=== PATIENT | female | born 2005 | race Caucasian/White ===

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

== ENCOUNTER 2025-02-09 22:05 | Emergency (ER) | payer OTHER, SELFPAY ==
[2025-02-09 22:05] VITALS: BP 128/74; PULSE 94; RESP 18; TEMP 36.4; O2SAT 98
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
--- NOTE | 2025-02-09 22:32 | PC.NURSE ---
DR WINN AT THE BEDSIDE. JACQUELIN CALDERON, SITTING AT THE BEDSIDE. PATIENT IS CALM AND COOPERATIVE. PATIENT HAS CHANGED INTO PAPER SCRUBS, URINE SAMPLE OBTAINED AND TAKEN DOWN TO LAB
--- NOTE | 2025-02-09 22:36 | ECG_ITS ---
Test Date: 2025-02-09 22:48:08 Measurements Intervals [place] Rate: 94 P: 51 SC: 122 QRS: 65 QRSD: 88 T: 40 QT: 342 QTc: 429 Interpretive Statements SINUS RHYTHM POSSIBLE RIGHT VENTRICULAR CONDUCTION DELAY [RSR (QR) IN V1/V2] WITHIN NORMAL LIMITS No previous ECG available for comparison Electronically Signed On 02-11-2025 12:57:54 CDT by Frank Victor M.D.
--- NOTE | 2025-02-09 22:39 | ED.PSYCH ---
HPI - Psych General Chief Complaint: Psychiatric Symptoms Stated Complaint: suicidal thoughts Time Seen by Provider: 02/09/25 22:32 Source: patient and family Mode of arrival: ambulatory Limitations: no limitations History of Present Illness HPI Narrative: 20 years old white female came to the ED with her father from home complaining of suicidal thoughts over the last 3 months. Patient was hospitalized in the past at [facility] and would like to go back to that hospital again. Patient does not have a specific plan. She denies any fever, chills, nausea, or vomiting Related Data Home Medications ?Medication ?Instructions ?Recorded ?Confirmed ?Last Taken ?Type buspirone 30 mg tablet 20 mg PO BID 07/28/22 06/19/24 Unknown History lamotrigine 50 mg disintegrating 50 mg PO BID 07/28/22 06/19/24 Unknown History tablet sertraline 100 mg tablet 100 mg PO DAILY 07/28/22 06/19/24 Unknown History Allergies Allergy/AdvReac Type Severity Reaction Status Date / Time No Known Allergies Allergy Verified 02/09/25 22:54 Review of Systems Review of Systems: All systems reviewed & are unremarkable except as noted in HPI and below PMFSH Surgical History Surgical History H/O knee surgery Social History Social History Substance use type: marijuana Exam Narrative: General appearance: Well-developed, well-nourished Skin: Normal color Head: Normocephalic, nontraumatic Eyes: Clear conjunctiva ENT: Oropharynx normal, ears normal, nose normal Neck: Supple, nontender Chest and respiratory: Airway patent, no respiratory distress, no accessory muscle use Heart: Regular rate/rhythm Abdomen: Soft, nontender, no organomegaly, quiet bowel sounds Vascular: Normal peripheral pulses, normal capillary refill. Musculoskeletal: Normal range of motion, nontender back Neurologic: Alert and oriented ?3, CASER is normal as tested, no gross motor deficit Course Vital Signs Vital signs: Vital Signs Temperature 36.4 C 02/09/25 22:05 Pulse Rate 94 02/09/25 22:05 Respiratory Rate 18 02/09/25 22:05 Blood Pressure 128/74 02/09/25 22:05 Pulse Oximetry 98 02/09/25 22:05 Oxygen Delivery Room Air 02/09/25 22:05 Temperature 36.1 C L 02/10/25 05:31 Pulse Rate 99 02/10/25 05:31 Respiratory Rate 18 02/10/25 05:31 Blood Pressure 123/79 02/10/25 05:31 Pulse Oximetry 97 02/10/25 05:31 Oxygen Delivery Room Air 02/10/25 05:31 MDM - Psych MDM Narrative Medical decision making narrative: patient came with suicidal thought for the last 3 months. History of major depression with anxiety Vital signs are stable Differential diagnosis include major depression with suicidal thoughts Blood workup today includes CBC, CMP, TSH showed WBC of 14.3, Urine test is negative Urinalysis showed no evidence of infection Patient tested negative for COVID flu and RSV Diagnosis major depression with suicidal ideation Transferred to [facility] discussed with Dr. Gillette Patient care turned over to Dr. Cartagena at shift change, awaiting Transferred to [facility]. Patient been resting quietly in the emergency room without any issues or problems. Medical Records Attestation: I reviewed the patient's medical records. Lab Data Attestation: I reviewed the patient's lab results. 02/09/25 23:02 02/09/25 23:02 Labs: Lab Results 02/09/25 02/09/25 02/09/25 Range/Units 22:43 22:47 23:02 WBC 14.3 H (4.8-10.8) K/mm3 RBC 4.89 (4.20-5.40) M/mm3 Hgb 13.8 (12.0-15.0) g/dL Hct 41.7 (35.0-49.0) % MCV 85.3 (78.0-102.0) fL MCH 28.2 (27.0-31.0) pg MCHC 33.1 (32-36) g/dL RDW 12.1 (11.6-14.4) % Plt Count 267 (150-420) K/mm3 MPV 10.6 (9.2-11.8) fl Immature Gran % (Auto) 0.4 H (0.0-0.0) % Neut % (Auto) 79.1 H (50.0-70.0) % Lymph % (Auto) 14.0 L (18.0-42.0) % [place]ck[place] % (Auto) 4.7 (2.0-11.0) % Eos % (Auto) 1.3 (1.0-6.0) % Baso % (Auto) 0.5 (0.0-1.0) % Lymph # (Auto) 2.00 (1.10-4.50) K/mm3 [place]ck[place] # (Auto) 0.67 (0.10-0.90) K/mm3 Eos # (Auto) 0.19 (0.02-0.50) K/mm3 Baso # (Auto) 0.07 (0.00-0.10) K/mm3 Abs Immat Gran (auto) 0.06 H (0.00-0.00) K/mm3 Absolute Neuts (auto) 11.34 H (1.70-7.20) K/mm3 Absolute Nucleated RBC 0.00 (0.00-0.00) K/mm3 Nucleated RBC % 0.0 (0-0.0) % Sodium 136 L (137-145) mmol/L Potassium 3.8 (3.4-5.0) mmol/L Chloride 107 (98-107) mmol/L Carbon Dioxide 21 L (22-30) mmol/L Anion Gap 8 (4-12) mmol/L BUN 10 (7-17) mg/dL Creatinine 0.79 (0.7-1.0) mg/dL Estim Creat Clear Calc 78 ml/min Estimated GFR > 60 (59 - ) Glucose 99 (65-110) mg/dL Calculated Osmolality 281 L (285-295) mOsm/kg Calcium 9.2 (8.4-10.2) mg/dL Total Bilirubin 0.5 (0.2-1.3) mg/dL AST 23 (14-36) U/L ALT 17 (6-35) U/L Alkaline Phosphatase 70 (38-126) U/L Total Protein 7.3 (6.3-8.2) g/dL Albumin 4.2 (3.5-5.1) g/dL TSH (Reflex) 2.880 (0.465-4.68) uIU/mL Urine Color Light yellow (Yellow) Urine Appearance Clear (Clear) Urine pH 6.0 (5.0-8.0) Ur Specific Nev[place] 1.025 H (1.010-1.020) Urine Protein Negative (Negative) Urine Glucose (UA) Negative (Negative) Urine Ketones Negative (Negative) Ur Blood (Man) 3+ H (Negative) Urine Nitrate Negative (Negative) Urine Bilirubin Negative (Negative) Urine Urobilinogen 0.2 (0.2-1.0) mg/dL Leukocyte Esterase Rfl Negative (Negative) ALDEN/UL Urine RBC 11-20 H (0-2) /hpf Urine WBC 0-3 (0-3) /hpf Ur Squamous Epith Cells Few (Few) /hpf Urine Bacteria Trace (None) /hpf Urine Test Negative Urine Opiates Screen Negative (Negative) Urine Methadone Screen Negative (Negative) Ur Barbiturates Screen Negative (Negative) Ur Phencyclidine Scrn Negative (Negative) Ur Amphetamine Screen Negative (Negative) U Benzodiazepines Scrn Negative (Negative) Urine Cocaine Screen Negative (Negative) U Cannabinoids Screen Positive A (Negative) Ethyl Alcohol < 10 (<10) mg/dL Influenza A (RT-PCR) Negative (Negative) Influenza B (RT-PCR) Negative (Negative) RSV (RT-PCR) Negative (Negative) SARS-CoV-2 RNA (RT-PCR) Negative (Negative) ECG Data EKG #1: Attestation: I personally reviewed and interpreted this ECG as follows: ECG completion date: 02/10/25 Interpretation: normal sinus rhythm at 94 beats per minute, right bundle-branch block, no previous EKG available Critical Care Time Critical Care Time Critical Care Time: No Discharge Plan Discharge Clinical Impression: Depression with suicidal ideation Patient Disposition: Acute Care Hospital Condition: Stable Additional Instructions: transferred to [facility] Patient Language: Hebrew Prescriptions: No Action ondansetron 4 mg tablet,disintegrating 4 mg PO Q6H PRN (Reason: nausea and vomiting) Qty: 14 0RF nitrofurantoin monohyd/m-cryst [Macrobid] 100 mg capsule 100 mg PO Q12H 7 Days Qty: 14 0RF Rx Instructions: must administer with a meal/food sertraline 100 mg tablet 100 mg PO DAILY buspirone 30 mg tablet 20 mg PO BID lamotrigine 50 mg tablet,disintegrating 50 mg PO BID Follow-up/Referrals: UNKNOWN,DOCTOR [Non-Staff] -
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
[2025-02-09 22:48] LABS: Add Urine Microscopic? YES; Appearance Urine Clear (Clear); Glucose Urine UA Negative (Negative); Leukocyte Esterase Ur Negative LEU/UL (Negative); Nitrate Urine Negative (Negative); Specific Grav Ur 1.025 (1.010-1.020)
[2025-02-09 22:56] LABS: Pregnancy On Board Control Positive
[2025-02-09 23:05] LABS: Hematocrit 41.7 % (35.0-49.0); Hemoglobin 13.8 g/dL (12.0-15.0); Immature Granulocyte Percent A 0.4 % (0.0-0.0); Lymphocytes Absolute Auto 2.00 K/mm3 (1.10-4.50); Mean Corpuscular HGB Conc 33.1 g/dL (32-36); Mean Corpuscular Hemoglobin 28.2 pg (27.0-31.0); Mean Corpuscular Volume 85.3 fL (78.0-102.0); Nucleated Red Blood Cells Absolute Auto 0.00 K/mm3 (0.00-0.00); Nucleated Red Blood Cells Perc 0.0 % (0-0.0); Platelet Count Result 267 K/mm3 (150-420); Red Blood Count 4.89 M/mm3 (4.20-5.40); White Blood Count 14.3 K/mm3 (4.8-10.8)
[2025-02-09 23:07] LABS: Cannabinoid Screen Urine Positive (Negative)
--- NOTE | 2025-02-09 23:09 | PC.NURSE ---
LAB HAS BEEN TO THE BEDSIDE AND DRAWN BLOOD. PATIENT IS RESTING ON BED IN ROOM 5 WITH HER FATHER AT HER SIDE. JACQUELIN CALDERON, OUTSIDE THE ROOM SITTER. PATIENT IS CALM AND COOPERATIVE
[2025-02-09 23:21] LABS: Anion Gap 8 mmol/L (4-12); Aspartate Amino Transferase 23 U/L (14-36); Bilirubin,Total 0.5 mg/dL (0.2-1.3); Blood Urea Nitrogen 10 mg/dL (7-17); Calcium 9.2 mg/dL (8.4-10.2); Carbon Dioxide 21 mmol/L (22-30); Chloride 107 mmol/L (98-107); Estimated CRCL calculation 78 ml/min; Estimated Glomerular Filt Rate > 60; Glucose 99 mg/dL (65-110); Osmolality Calculated 281 mOsm/kg (285-295); Potassium 3.8 mmol/L (3.4-5.0); Sodium 136 mmol/L (137-145)
[2025-02-09 23:21] LABS: Influenza A QL RT-PCR Negative (Negative); Influenza B QL RT-PCR Negative (Negative); RSV RNA, RT-PCR Negative (Negative); SARS-CoV-2 RNA PCR Negative (Negative)
[2025-02-09 23:22] LABS: Alanine Aminotransferase 17 U/L (6-35); Albumin Level 4.2 g/dL (3.5-5.1); Alkaline Phosphatase 70 U/L (38-126); Total Protein 7.3 g/dL (6.3-8.2)
[2025-02-09 23:50] LABS: Thyroid Stimulating Hormone Reflex 2.880 uIU/mL (0.465-4.68)
--- NOTE | 2025-02-10 | PC.NURSE ---
PATIENTS FATHER HAS LEFT THE FACILITY. PATIENT IN ROOM 5. CALM AND COOPERATIVE. JACQUELIN CALDERON, OUTSIDE THE ROOM SITTER. WAITING ON [address] TO ARRIVE. PATIENT DENIES ANY NEEDS
--- NOTE | 2025-02-10 01:00 | PC.NURSE ---
PATIENTS FATHER HAS RETURNED. PATIENT IS CALM AND QUIET IN ROOM 5. JACQUELIN CALDERON, OUTSIDE THE ROOM SITTER. WAITING ON [address] TO ARRIVE
[2025-02-10 01:37] VITALS: BP 129/87; PULSE 105; RESP 18; TEMP 36.4; O2SAT 100
--- NOTE | 2025-02-10 01:53 | PC.NURSE ---
[facility] STAFF AT THE BEDSIDE
--- NOTE | 2025-02-10 03:00 | PC.NURSE ---
[facility] WITH PATIENT. FATHER HAS GONE OUTSIDE. JACQUELIN CALDERON, OUTSIDE ROOM SITTER. CALM AND COOPERATIVE
--- NOTE | 2025-02-10 03:18 | PC.NURSE ---
PAPERWORK HAS BEEN FAXED TO [facility] BY [facility] WITH [address]
--- NOTE | 2025-02-10 04:00 | PC.NURSE ---
PATIENT IS CURRENTLY RESTING ON BED IN ROOM 5. FATHER HAS GONE HOME. AWARE THAT PATIENT IS TO BE TRANSFERRED TO [facility] IN [place]. CURRENTLY WAITING ON [facility] TO CALL THIS RN WITH ROOM ASSIGNMENT. PATIENT IS CALM AND COOPERATIVE. VERBALIZED UNDERSTANDING OF CURRENT PLAN OF CARE. JACQUELIN CALDERON, SITTING OUTSIDE THE ROOM SITTER.
--- NOTE | 2025-02-10 05:00 | PC.NURSE ---
PATIENT APPEARS TO BE SLEEPING. RESP EVEN AND UNLABORED. JACQUELIN CALDERON, SITTING OUTSIDE THE DOOR SITTER.
[2025-02-10 05:31] VITALS: BP 123/79; PULSE 99; RESP 18; TEMP 36.1; O2SAT 97
--- NOTE | 2025-02-10 05:45 | PC.NURSE ---
TRANSFER CONSENT SIGNED BY PATIENT AND PLACED ON CHART. PATIENT IS AWARE THAT SHE WILL NOT BE ABLE TO ARRIVE AT [facility] UNTIL AFTER 0800
[2025-02-10 07:42] VITALS: BP 127/86; PULSE 99; RESP 16; TEMP 36.4; O2SAT 98
== END 2025-02-10 07:50 ==
PROVIDERS: Emergency Medicine; Emergency Provider Emergency Medicine; Referring Provider Internal Medicine
DX: F32.A Depression, unspecified (principal); R45.851 Suicidal ideations; Z20.822 Contact with and (suspected) exposure to COVID-19; Z79.899 Other long term (current) drug therapy
CPT/HCPCS: 36415; 80053; 80307; 81001; 81025; 82077; 84443; 85025; 87637; 93005; 99285